=== PATIENT | female | born 1975 | race Caucasian/White ===

== ENCOUNTER 2022-05-14 01:06 | Emergency (ER) | payer OTHER ==
[~2022-05-14] VITALS: Ht 154.9 cm; Wt 56.7 kg
[2022-05-14] MEDS ORDERED: HYDROCODONE/APAP 5/325MG TABLET ONE (01:24)
[2022-05-14] MEDS ORDERED: HYDROCODONE/APAP 5/325MG TABLET PO ONE (01:30)
--- NOTE | 2022-05-14 01:31 | NUR ---
WEIVER SIGNED BY PT
--- NOTE | 2022-05-14 01:39 | NUR ---
XRAY AT BEDSIDE
[2022-05-14] MEDS ORDERED: TDAP [DIPH/PERTUSSIS/TET] 0.5 ML VIAL IM ONE ×2 (02:00→02:31)
[2022-05-14] MEDS ORDERED: PROPOFOL 20 ML IV ONE (02:27)
--- NOTE | 2022-05-14 02:44 | NUR ---
0244: Closed Reduction under moderate sedation Right Rrist. ER MD, RN, RT, EMT AT BEDSIDE VS: HR 101, 98% RA, 20 RR, BP 132/83 0245: IVP Propofol 100MG 0246: REDUCED VS: HR 104, 99% RA, 20RR, BP 145/90
--- NOTE | 2022-05-14 02:53 | NUR ---
PATIENT A/O X 4, VSS. WILL CONTINUE TO MONITOR.
--- NOTE | 2022-05-14 02:56 | NUR ---
RAD AT BEDSIDE
--- NOTE | 2022-05-14 02:57 | NUR ---
EMT AT PT'S BEDSIDE. SPLINT APPLIED TO R WRIST
[2022-05-14] MEDS ORDERED: HYDR-4275 PO (03:03)
[2022-05-14] MEDS ORDERED: MORPHINE SULFATE INJ 4 MG/ML DISP.SYRIN ONE (03:15)
[2022-05-14] MEDS ORDERED: ONDANSETRON HCL/PF 4 MG/2 ML VIAL ONE (03:15)
[2022-05-14] MEDS ORDERED: MORPHINE SULFATE INJ 2 MG/ML DISP.SYRIN IV ONE (03:30)
[2022-05-14] MEDS ORDERED: PROPOFOL 200 MG/20 ML VIAL IV ONE (03:30)
[2022-05-14] MEDS ORDERED: ONDANSETRON HCL/PF 4 MG/2 ML VIAL IV ONE (03:30)
--- NOTE | 2022-05-14 04:30 | NUR ---
Patient discharged to home in stable condition. Written and verbal after care instructions given. Patient verbalizes understanding of instruction.
[2022-05-14 04:31] VITALS: BP 132/70
== END 2022-05-14 04:31 | disposition home or self-care (01) ==
LOC: ER 01:16
DX: S52.531A Colles' fracture of right radius, initial encounter for closed fracture (principal); S52.611A Displaced fracture of right ulna styloid process, initial encounter for closed fracture; S50.812A Abrasion of left forearm, initial encounter; S90.512A Abrasion, left ankle, initial encounter; S90.511A Abrasion, right ankle, initial encounter; V49.49XA Driver injured in collision with other motor vehicles in traffic accident, initial encounter; Y93.89 Activity, other specified; Y92.413 State road as the place of occurrence of the external cause; Y99.8 Other external cause status
CPT/HCPCS: 25605; 99285; 90471; 99152; 90715; 73080; 73090; 73110 ×2; 96374; 96375; J2704; J2270; J2405; A6403; G0500